=== PATIENT | female | born 1995 | race Caucasian/White ===

== ENCOUNTER 2017-12-13 12:21 | Emergency (ER) | payer OTHER ==
[2017-12-13 12:34] VITALS: BMI 23.0
--- NOTE | 2017-12-13 13:34 | PDOC ---
Attending Attestation - Resident Resident Name: Jayesh Song - ED Attending Attestation I have performed the following: I have examined & evaluated the patient, The case was reviewed & discussed with the resident, I agree w/resident's findings & plan, Exceptions are as noted
[2017-12-13] MEDS ORDERED: MAG HYDROX/AL HYDROX/SIMETH 30 ML UNIT-DOSE CUP PO ONE (13:39)
[2017-12-13] MEDS ORDERED: LIDOCAINE VISCOUS 2% ORAL/TOP 100 ML BOTTLE MM ONE (13:39)
[2017-12-13] MEDS ORDERED: MAG HYDROX/AL HYDROX/SIMETH 30 ML UNIT-DOSE CUP ONE (13:44)
[2017-12-13] MEDS ORDERED: LIDOCAINE VISCOUS 2% ORAL/TOP 20 ML UNIT-DOSE CUP ONE (13:44)
--- NOTE | 2017-12-13 14:10 | PDOC ---
History of Present Illness - General Chief Complaint: Pain Stated Complaint: CHEST PAIN/epigastric pain Time Seen by Provider: 12/13/17 12:55 History Source: Patient, Parent(s) Exam Limitations: No Limitations - History of Present Illness Initial Comments: 22 y/o female presenting to [facility] ER via private auto complaining of a burning sensation in epigastric region and middle of chest. Symptom started yesterday afternoon after several large meals over the holiday weekend. Trialed cyclobenzaprine yesterday believing it was a muscle spasm; no relief. Acutely worsened this morning, which prompted visit today. No h/o similar. Experienced vague abdominal pains years ago, EGD performed by Dr. Blue, reportedly normal per family. Additional reports average HR in 90s. Pt denies past medical history. Takes no prescription medications. No OCP or other contraceptives. Denies prolonged immobilization. Denies h/o cancer or coagulopathies. Denies familial history of coagulopathies. Denies SOB, chest pain, palpitations, syncope, constipation, diarrhea, or symptoms. Past History - Past Medical History Allergies/Adverse Reactions: Allergies Allergy/AdvReac Type Severity Reaction Status Date / Time No Known Allergies Allergy Verified 12/13/17 12:28 Home Medications: Ambulatory Orders Omeprazole 20 mg PO DAILY 14 Days #14 tablet. 12/13/17 COPD: No Other medical history: back problems - Suicide/Smoking/Psychosocial Hx Smoking History: Never smoked Information on smoking cessation initiated: No Hx Alcohol Use: No Drug/Substance Use Hx: No Substance Use Type: None Review of Systems - Review of Systems Able to Perform ROS?: Yes Is the patient limited Vincentian proficient: No Constitutional: No: Chills, Diaphoresis, Fever HEENTM: Yes: Throat Pain. No: Recent change in vision, Throat Swelling, Difficulty Swallowing Respiratory: No: Cough, Shortness of Breath Cardiac (ROS): No: Chest Pain, Irregular Heart Rate, Lightheadedness, Palpitations, Syncope ABD/GI: Yes: Nausea, Indigestion. No: Constipated, Diarrhea, Difficulty Swallowing, Vomiting : No: Burning, Dysuria, Hematuria Musculoskeletal: No: Muscle Weakness Integumentary: No: Bruising, Rash Hematologic/Lymphatic: No: Easy Bleeding, Easy Bruising *Physical Exam - Vital Signs Last Vital Signs Temp Pulse Resp BP Pulse Ox 98.7 F 94 H 17 124/74 100 12/13/17 13:33 12/13/17 13:33 12/13/17 13:33 12/13/17 13:33 12/13/17 13:33 - Physical Exam Comments: Constitutional: Well-developed, well-nourished, non-toxic female in no acute distress or obvious discomfort. Found semi-fowlers in hospital bed. Alert and oriented x4. Answered all questions appropriately and completely. Speech was non -labored, non-pressured. HEENT: Normocephalic. No obvious external signs of trauma. Hearing grossly normal. No nasal discharge. Neck is supple, trachea is midline. Chest / Cardiovascular: Regular rate and regular rhythm. No murmur, rubs, clicks, or gallops. Peripheral pulses: Radial pulses full. No chest wall tenderness to palpation Respiratory: Breathing unlabored. Equal chest rise and fall. Clear to auscultation bilaterally. No stridor, no wheezing, no rhonchi. Gastrointestinal: abdomen is soft, non-tender, non-distended. Neuro: Alert and oriented. Moving all four extremities spontaneously. Skin: Warm, dry, and intact. No bruising, rashes, or other lesions. Psych: Affect: flat. Mood: normal ED Treatment Course - LABORATORY CBC & Chemistry Diagram: 12/13/17 15:05 12/13/17 15:05 - Medications Given in the ED: ED Medications Discontinued Medications Generic Name Dose Route Start Last Admin Trade Name Freq PRN Reason Stop Dose Admin Al Hydroxide/Mg Hydroxide 30 ml 12/13/17 13:39 12/13/17 13:47 Mylanta Oral Suspension - PO 12/13/17 13:40 30 ml ONCE ONE Administration Lidocaine HCl 15 ml 12/13/17 13:39 12/13/17 13:47 Xylocaine 2% Viscous MM 12/13/17 13:40 15 ml ONCE ONE Administration Medical Decision Making - Medical Decision Making *Reviewed nursing notes and prior visit documentation. 22 y/o previously healthy female complaining of burning sensation in epigastric region and middle of chest. No h/o similar. Afebrile. Vitals remarkable for borderline tachycardia. Suspect GERD symptoms. Low suspicion for ACS given age and no risk factors. Low suspicion for PE as pt is not tachypnic or dyspnic. Pt reports she is always told she is tachycardiac at doctors offices. HR observed (remotely) to decrease to low 90s when no provider is in the exam room. Ordered viscous lidocaine, maalox for symptom relief. Pt reports symptoms are somewhat improved. Will obtain CBC, CMP, and lipase for further evaluation, though low suspicion for infectious cause or pancreatitis. IV protonix ordered for additional symptom relief. Pt reports symptoms are again somewhat improved. Discussed normal lab results and likelihood that symptoms are related to reflux. Answered all questions. Provided return precautions. Pt and family expressed verbal understanding and agreement with plan to discharge home with outpatient GI follow up. *DC/Admit/Observation/Transfer Diagnosis at time of Disposition: Gastric reflux - Discharge Dispostion Disposition: HOME Condition at time of disposition: Good Decision to Admit order: No - Prescriptions Prescriptions: Omeprazole 20 mg PO DAILY 14 Days #14 tablet.dr - Referrals Referrals: Shea Hi MD [Primary Care Provider] - Hadley Blue MD [Staff Physician] - - Patient Instructions Printed Discharge Instructions: DI for Gastroesophageal Reflux Disease (GERD) Additional Instructions: Your blood work was normal today. I have sent a prescription for Omeprazole to the [facility] on [address] in [place]. Take the medication as directed on the bottle. Follow up with Dr. Blue or your primary care doctor within the next week. You will need to call to make an appointment. Go to the nearest ER if your symptoms worsen or you feel like you need additional emergency evaluation. Print Language: FRENCH - Post Discharge Activity
[2017-12-13 14:34] VITALS: TEMP 98.5
[2017-12-13] MEDS ORDERED: SODIUM CHLORIDE 0.9% 500 ML INFUS.BAG IV ONE (14:53)
[2017-12-13] MEDS ORDERED: PANTOPRAZOLE SODIUM 40 MG VIAL IVPUSH ONE (14:53)
[2017-12-13] MEDS ORDERED: PANTOPRAZOLE SODIUM 40 MG/100 ML BAG IVPB ONE (14:55)
[2017-12-13 15:17] LABS: BASO % 0.6 % (0-2.0); EOS % 0.4 % (0-4.5); HEMATOCRIT 41.3 % (32.4-45.2); HEMOGLOBIN 14.1 GM/dL (10.7-15.3); LYMPH % 18.5 % (8-40); MCH 31.6 pg (25.7-33.7); MCHC 34.2 g/dl (32.0-36.0); MEAN CELL VOLUME 92.5 fl (80-96); MEAN PLT VOLUME 9.2 fl (7.5-11.1); MONO % 6.9 % (3.8-10.2); NEUT % 73.6 % (42.8-82.8); PLATELET COUNT 235 K/MM3 (134-434); RBC 4.46 M/mm3 (3.60-5.2); WHITE BLOOD COUNT 5.9 K/mm3 (4.0-10.0)
[2017-12-13 15:28] LABS: CHLORIDE 105 mmol/L (98-107); POTASSIUM 3.9 mmol/L (3.5-5.1); SODIUM 143 mmol/L (136-145)
[2017-12-13 15:28] LABS: URINE APPEARANCE CLEAR; URINE BILIRUBIN NEGATIVE (<2.0 mg/dL); URINE COLOR STRAW; URINE GLUCOSE (UA) NEGATIVE (NEGATIVE); URINE KETONE NEGATIVE (NEGATIVE); URINE LEUK ESTERASE NEGATIVE (NEGATIVE); URINE NITRITE NEGATIVE (NEGATIVE); URINE PROTEIN NEGATIVE (NEGATIVE); URINE UROBILINOGEN NEGATIVE mg/dL (0.2-1.0)
[2017-12-13 15:34] LABS: ALBUMIN 4.3 g/dl (3.4-5.0); ANION GAP 9 MMOL/L (8-16); BILIRUBIN,TOTAL 0.4 mg/dL (0.2-1.0); BLOOD UREA NITROGEN 10 mg/dL (7-18); CALCIUM 8.8 mg/dL (8.5-10.1); CO2 29 mmol/L (21-32); CREATININE 0.7 mg/dL (0.55-1.02); GLUCOSE,RANDOM 95 mg/dL (74-106); LIPASE 137 U/L (73-393); SGOT/AST 14 U/L (15-37); SGPT/ALT 16 U/L (12-78); TOT PROT 7.2 g/dl (6.4-8.2)
[2017-12-13 15:35] LABS: ALK PHOS 51 U/L (45-117)
[2017-12-13 15:39] LABS: HCG,QUALITATIVE URINE NEGATIVE
[2017-12-13 16:45] VITALS: BP 118/74; PULSE 92
== END 2017-12-13 16:45 | disposition home or self-care (01) ==
LOC: JER 12:21
PROC: 3E033GC Introduction of Other Therapeutic Substance into Peripheral Vein, Percutaneous Approach (ICD-10-PCS; principal; 2017-12-13)
DX: K21.9 Gastro-esophageal reflux disease without esophagitis (principal)
CPT/HCPCS: 36415; 80053; 81003; 83690; 84703; 85025; 99283-25

== ENCOUNTER 2018-05-13 18:53 | Emergency (ER) | payer OTHER ==
--- NOTE | 2018-05-13 19:11 | PDOC ---
Rapid Medical Evaluation Time Seen by Provider: 05/13/18 19:08 Medical Evaluation: Allergies Allergy/AdvReac Type Severity Reaction Status Date / Time No Known Allergies Allergy Verified 12/13/17 12:28 05/13/18 19:09 Pt c/o: vaginal burning x 1 month, seen by coal digger this week and placed on flagyl with no improvement Pt on brief exam: vss Pt ordered for: ua, upreg, ucx Pt to proceed to the ED Discharge Disposition - Diagnosis Vaginal burning - Referrals - Patient Instructions - Post Discharge Activity
[2018-05-13 19:14] VITALS: BP 127/63; PULSE 104; TEMP 97.9; BMI 21.4
--- NOTE | 2018-05-13 19:52 | PDOC ---
History of Present Illness - General Chief Complaint: Urinary Problem Stated Complaint: UTI/SORE THROAT Time Seen by Provider: 05/13/18 19:08 History Source: Patient Exam Limitations: No Limitations Past History - Past Medical History Allergies/Adverse Reactions: Allergies Allergy/AdvReac Type Severity Reaction Status Date / Time No Known Allergies Allergy Verified 12/13/17 12:28 Home Medications: Ambulatory Orders NK [No Known Home Medication] 05/13/18 COPD: No - Suicide/Smoking/Psychosocial Hx Smoking History: Unknown if ever smoked Hx Alcohol Use: Yes (Social) Drug/Substance Use Hx: No Substance Use Type: None *Physical Exam - Vital Signs Last Vital Signs Temp Pulse Resp BP Pulse Ox 97.9 F 104 H 20 127/63 99 05/13/18 19:08 05/13/18 19:08 05/13/18 19:08 05/13/18 19:08 05/13/18 19:08 - Physical Exam General Appearance: No: Apparent Distress Respiratory/Chest: positive: Lungs Clear, Normal Breath Sounds. negative: Respiratory Distress Cardiovascular: positive: Regular Rhythm, Regular Rate, S1, S2. negative: Murmur Female Pelvic Exam: positive: normal external exam, normal adnexa. negative: CMT, discharge, adnexal tenderness Gastrointestinal/Abdominal: positive: Normal Bowel Sounds, Soft. negative: Tender, Distended, Guarding, Rebound Integumentary: positive: Normal Color. negative: Rash Neurologic: positive: Alert, Normal Mood/Affect Moderate Sedation - Procedure Monitoring Vital Signs: Procedure Monitoring Vital Signs Temperature 97.9 F 05/13/18 19:08 Pulse Rate 104 H 05/13/18 19:08 Respiratory Rate 20 05/13/18 19:08 Blood Pressure 127/63 05/13/18 19:08 O2 Sat by Pulse Oximetry (%) 99 05/13/18 19:08 Medical Decision Making - Medical Decision Making 23 y/o F hx of gastritis presents with vaginal burning for >1 month. Initially went to when she was prescribed Macrobid, which did not help. She returned to urgent care again where she had testing for STD done; she was found to be negative for everything except only positive for bacterial vaginosis and was started on Flagyl. She finished Flagyl and still did not feel better. She had repeat BV testing last week which was negative. She saw her teachers aide 2 days ago and was prescribed Clotrimazole cream which she feels is also not helping. Mentions the burning is constant and is not associated with her urination. Has only had sexual intercourse once (around a month ago), but symptoms started before her intercourse. Denies hx of STDs. Denies fever, abd pain, n/v/d, hematuria, vag bleeding, unusual vaginal discharge, rash, urinary frequency. PE unremarkable Unclear cause of sxs, but not suspicious for STD or UTI No evidence of herpes on exam Advised patient to continue follow-up with her teachers aide 05/13/18 19:52 *DC/Admit/Observation/Transfer Diagnosis at time of Disposition: Vaginal burning - Discharge Dispostion Disposition: HOME Condition at time of disposition: Stable Decision to Admit order: No - Referrals Referrals: Shea Hi MD [Primary Care Provider] - 2 Days - Patient Instructions Additional Instructions: Thank you for choosing [facility]. It was a pleasure taking care of you. Please continue follow-up with your teachers aide for your symptoms. Return to the Emergency Department if your symptoms worsen or persist, you have fever, unusual rash, blood in urine, severe abdominal pain, vomiting or other concerning symptoms. - Post Discharge Activity
== END 2018-05-13 19:54 | disposition home or self-care (01) ==
LOC: JERFT 18:53
DX: N89.8 Other specified noninflammatory disorders of vagina (principal)
CPT/HCPCS: 99281-25